=== PATIENT | female | born 1960 ===

== ENCOUNTER → 2018-08-19 | Outpatient (REF) ==
[2018-08-19 09:59] LABS: HEMATOCRIT 44.3 % (37.0-47.0); HEMOGLOBIN 15.1 g/dl (12.5-16.0); MEAN CELL VOLUME 83 fl (80.0-100.0); MEAN CORPUSCULAR HEMOGLOBIN 28 pg (27.0-31.0); MEAN CORPUSCULAR HGB CONC 34 g/dl (33.0-37.0); MEAN PLATELET VOLUME 9.5 fl (7.4-10.4); PLATELET COUNT 214 K/mm3 (130-400); RED BLOOD COUNT 5.33 M/mm3 (4.10-5.30); REDCELL DISTRIBUTION WIDTH-CV 12.6 % (11.5-14.5)
== END ==
LOC: ZLAB.WCH 09:50
PROVIDERS: Family Medicine
DX: Z01.89 Encounter for other specified special examinations (principal)